=== PATIENT | female | born 2000 | race Caucasian/White ===

== ENCOUNTER 2022-06-05 18:00 | Inpatient (IN) | payer OTHER, SELFPAY ==
[2022-06-05] MEDS ORDERED: NS w/ Oxytocin 30 units 500 ML IV SCH ×2 (18:52)
[2022-06-05] MEDS ORDERED: Lidocaine 1% (PF) 30 ML VIAL SC PRN (18:52)
[2022-06-05] MEDS ORDERED: hydrALAZINE 20 MG/ML VIAL SLOW IVP PRN (18:52)
[2022-06-05] MEDS ORDERED: Misoprostol 200 MCG TAB PR PRN (18:52)
[2022-06-05] MEDS ORDERED: Docusate 100 MG CAP PO PRN (18:52)
[2022-06-05] MEDS ORDERED: Zolpidem Tartrate 5 MG TAB PO PRN (18:52)
[2022-06-05] MEDS ORDERED: Ibuprofen 800 MG TAB PO PRN (18:52)
[2022-06-05] MEDS ORDERED: Ondansetron PF 4 MG/2 ML Vial IVP PRN ×2 (18:52→23:49)
[2022-06-05] MEDS ORDERED: HYDROcodone/Acetaminophen 5/325 mg Tablet PO PRN ×2 (18:52)
[2022-06-05] MEDS ORDERED: Penicillin G Potassium 5 MILL.UNITS in Sodium Chloride 0.9% 100 ML IVPB SCH (18:52)
[2022-06-05] MEDS ORDERED: Promethazine HCl 25 MG/ML VIAL IM PRN ×2 (18:52→23:49)
[2022-06-05] MEDS ORDERED: Carboprost 250 MCG/ML AMP IM PRN (18:52)
[2022-06-05] MEDS ORDERED: Diphenoxylate HCl/Atropine Tablet PO PRN ×2 (18:52)
[2022-06-05] MEDS ORDERED: Butorphanol Tartrate 1 MG/ML VIAL SLOW IVP PRN (18:52)
[2022-06-05] MEDS ORDERED: Lactated Ringer's 1,000 ML IV SCH (18:52)
[2022-06-05] MEDS ORDERED: Acetaminophen 500 MG TAB PO PRN (18:52)
[2022-06-05 19:11] VITALS: BMI 25.9
[2022-06-05] MEDS: Misoprostol 100 MCG TAB VAG SCH (20:08)
[2022-06-05 20:13] LABS: Hemoglobin 11.9 g/dL (12.0-15.5); Mean Corpuscular HGB CONC 33.9 g/dL (32.0-36.0); Mean Corpuscular Hemoglobin 30.7 pg (27.0-33.0); Mean Corpuscular Volume 90.5 fl (81.6-98.3); Mean Platelet Volume 10.1 fl (7.4-10.4); Platelet Count 197 10x3/uL (150-450); RBC Distribution Width 18.5 % (11.5-14.5); Red Blood Cell (RBC) Count 3.88 10x6/uL (3.90-5.03); White Blood Cell (WBC) Count 9.6 10x3/uL (3.5-10.5)
[2022-06-05] MEDS ORDERED: Terbutaline Sulfate 1 MG/ML VIAL ONE (21:41)
[2022-06-05 21:49] LABS: HBSAg Index 0.13 S/CO (0-0.99); HIV (1/2) Antibody/Antigen Non-Reactive (NonReactive); Hep B Surf Ag Non-Reactive S/CO (NonReactive)
[2022-06-05 21:51] LABS: Syphilis Antibody Nonreactive (Nonreactive); Syphilis Antibody Index 0.04 S/CO (<1.00 Non-Reactive)
[2022-06-05] MEDS ORDERED: Fentanyl 2 mcg/Bup 0.1% Cadd 100 ML ONE (23:04)
[2022-06-05] MEDS ORDERED: Communication Order-Pharmacy FS SCH (23:45)
[2022-06-05] MEDS ORDERED: Fentanyl 2 mcg/Bupivacaine 0.1% Cassette 100 ML EPIDURAL SCH (23:45)
[2022-06-05] MEDS ORDERED: ePHEDrine Sulfate 50 MG/10 ML VIAL SLOW IVP PRN (23:49)
[2022-06-05] MEDS ORDERED: Moisturizing Cream (Eucerin) 113 GM JAR TOP PRN (23:49)
[2022-06-05] MEDS ORDERED: diphenhydrAMINE 50 MG/ML VIAL IVP PRN (23:49)
[2022-06-05] MEDS ORDERED: Naloxone HCl 0.4 mg/ml Vial IVP PRN ×2 (23:49)
[2022-06-05] MEDS ORDERED: Acetaminophen 325 MG TAB PO PRN (23:49)
[2022-06-05] MEDS ORDERED: Lactated Ringer's 500 ML IV PRN (23:49)
[2022-06-06] MEDS: Penicillin G 2.5 MILL.units 2.5 MILL.UNITS in Premix Bag 1 BAG IVPB SCH ×2 (01:00→05:06)
[2022-06-06 05:55] LABS: SARS-CoV-2 NAA Rapid Test Not Detected (NotDetected)
[2022-06-06] MEDS ORDERED: NS w/ Oxytocin 30 units 500 ML ONE (07:14)
[2022-06-06] MEDS ORDERED: Bupivacaine/Epinephrine 0.25% 30 ML VIAL ONE (12:00)
[2022-06-06] MEDS ORDERED: Ondansetron PF 4 MG/2 ML Vial IVP PRN (12:59)
[2022-06-06] MEDS ORDERED: Boostrix 0.5 ML (Tdap) VIAL (>/=7 yrs of age) IM ONE (12:59)
[2022-06-06] MEDS ORDERED: Milk Of Magnesia 30 ML UDCUP PO PRN (12:59)
[2022-06-06] MEDS ORDERED: hydrALAZINE 20 MG/ML VIAL SLOW IVP PRN (12:59)
[2022-06-06] MEDS ORDERED: Preparation H Ointment 28 GM TUBE PR PRN (12:59)
[2022-06-06] MEDS ORDERED: Misoprostol 200 MCG TAB VAG PRN (12:59)
[2022-06-06] MEDS ORDERED: Benzocaine-Menthol 82.5 ML CAN TOP PRN (12:59)
[2022-06-06] MEDS ORDERED: Bisacodyl 10 MG SUPP PR PRN (12:59)
[2022-06-06] MEDS ORDERED: Lanolin Ointment 7 GM TUBE TOP PRN (12:59)
[2022-06-06] MEDS ORDERED: diphenhydrAMINE 25 MG CAP PO PRN (12:59)
[2022-06-06] MEDS ORDERED: NS w/ Oxytocin 30 units 500 ML IV SCH (13:00)
[2022-06-06] MEDS: Ibuprofen 800 MG TAB PO SCH ×2 (16:19→22:18)
[2022-06-06] MEDS: Ferrous Sulfate 325 MG TAB PO SCH (16:20)
[2022-06-06] MEDS ORDERED: HYDROcodone/Acetaminophen 5/325 mg Tablet PO PRN ×2 (16:37→16:38)
[2022-06-06] MEDS: Docusate 100 MG CAP PO SCH (22:18)
[2022-06-07 05:25] LABS: Hemoglobin 11.4 g/dL (12.0-15.5); Mean Corpuscular HGB CONC 33.4 g/dL (32.0-36.0); Mean Corpuscular Hemoglobin 30.6 pg (27.0-33.0); Mean Corpuscular Volume 91.7 fl (81.6-98.3); Mean Platelet Volume 10.6 fl (7.4-10.4); Platelet Count 159 10x3/uL (150-450); RBC Distribution Width 18.1 % (11.5-14.5); Red Blood Cell (RBC) Count 3.72 10x6/uL (3.90-5.03); White Blood Cell (WBC) Count 12.3 10x3/uL (3.5-10.5)
[2022-06-07] MEDS: Ibuprofen 800 MG TAB PO SCH ×3 (05:25→21:50)
[2022-06-07] MEDS: Ferrous Sulfate 325 MG TAB PO SCH (07:26)
[2022-06-07] MEDS: Misoprostol 100 MCG TAB VAG SCH ×2 (07:28→07:29)
[2022-06-07] MEDS: Penicillin G 2.5 MILL.units 2.5 MILL.UNITS in Premix Bag 1 BAG IVPB SCH ×2 (07:28→07:29)
[2022-06-07] MEDS: Prenatal Vitamin 1 TAB PO SCH (07:56)
[2022-06-07] MEDS: Docusate 100 MG CAP PO SCH ×2 (07:56→21:51)
[2022-06-08] MEDS: Ibuprofen 800 MG TAB PO SCH (05:15)
[2022-06-08] MEDS: Ferrous Sulfate 325 MG TAB PO SCH (06:58)
[2022-06-08 07:49] VITALS: BP 111/59; TEMP 97.6
[2022-06-08] MEDS: Prenatal Vitamin 1 TAB PO SCH (08:14)
[2022-06-08] MEDS: Docusate 100 MG CAP PO SCH (08:15)
== END 2022-06-08 11:52 | disposition home or self-care (01) | DRG 806 ==
LOC: CSHLD 18:41 → CSHPP 06-06 15:35
PROVIDERS: ADMIT Obstetrics & Gynecology; ATTEND Obstetrics & Gynecology
PROC: 10E0XZZ Delivery of Products of Conception, External Approach (ICD-10-PCS; principal; 2022-06-06)
PROC: 0KQM0ZZ Repair Perineum Muscle, Open Approach (ICD-10-PCS; 2022-06-06)
PROC: 10907ZC Drainage of Amniotic Fluid, Therapeutic from Products of Conception, Via Natural or Artificial Opening (ICD-10-PCS; 2022-06-06)
PROC: 3E0E7GC Introduction of Other Therapeutic Substance into Products of Conception, Via Natural or Artificial Opening (ICD-10-PCS; 2022-06-06)
PROC: 3E0P7VZ Introduction of Hormone into Female Reproductive, Via Natural or Artificial Opening (ICD-10-PCS; 2022-06-06)
PROC: 10H07YZ Insertion of Other Device into Products of Conception, Via Natural or Artificial Opening (ICD-10-PCS; 2022-06-06)
DX: O99.824 Streptococcus B carrier state complicating childbirth (principal); O98.32 Other infections with a predominantly sexual mode of transmission complicating childbirth; Z37.0 Single live birth; Z3A.40 40 weeks gestation of pregnancy; Z20.822 Contact with and (suspected) exposure to COVID-19; D64.9 Anemia, unspecified; O99.02 Anemia complicating childbirth; A60.04 Herpesviral vulvovaginitis; Z79.899 Other long term (current) drug therapy; O77.0 Labor and delivery complicated by meconium in amniotic fluid; Z91.018 Allergy to other foods; O70.1 Second degree perineal laceration during delivery
CPT/HCPCS: 36415; 51702; 85027; 86780; 86850; 86900; 86901; 87340; 87389; 88307; J2540; J3105; J3490; U0002